=== PATIENT | female | born 1995 | race Native Hawaiian/Other Pacific Islander ===

== ENCOUNTER 2017-11-29 17:37 | Emergency (ER) | payer BC ==
[~2017-11-29] VITALS: Ht 165.1 cm; Wt 56.7 kg
[2017-11-29 19:29] LABS: PLATELET COUNT 173 K/uL (152-353)
[2017-11-29 19:40] LABS: POTASSIUM 3.5 mmol/L (3.6-5.2); SODIUM 138 mmol/L (136-145)
[2017-11-29 23:09] VITALS: BP 120/88; TEMP 98.2
== END 2017-11-29 23:12 | disposition home or self-care (01) ==
LOC: ED 17:37
DX: R10.9 Unspecified abdominal pain (principal)
CPT/HCPCS: 36415; 80053; 81000; 81025; 85027; 99284; Q9963

== ENCOUNTER 2022-08-16 19:00 | Emergency (ER) | payer BC ==
[~2022-08-16] VITALS: Ht 165.1 cm; Wt 54.4 kg
[2022-08-16 21:03] VITALS: BP 121/82; TEMP 98.1
== END 2022-08-16 21:03 | disposition home or self-care (01) ==
LOC: ED 19:00
DX: M26.622 Arthralgia of left temporomandibular joint (principal)
CPT/HCPCS: 99282